=== PATIENT | male | born 1940 | race Caucasian/White ===

== ENCOUNTER 2019-12-25 09:54 | Emergency (ER) | payer MEDICARE, OTHER ==
[~2019-12-25] VITALS: Ht 175.3 cm; Wt 119.0 kg
--- NOTE | 2019-12-25 10:46 | NUR ---
pt presents to ED with c/o mild sob and subjective fevers for last several days, pt denies chest pain, denies cough. pt is a&o, resps even and unlabored, pt able to speak in full sentences without needing to take a breath. all monitors in place, pt is sinus tach rate 90-100s with rare PVC. call light in reach. pt seen and examined by FLORENTIN Byers, awaiting labs and dispo at this time.
[2019-12-25 11:03] LABS: MEAN CORPUSCULAR HEMOGLOBIN 32.3 pg (27.5-34.5); MEAN PLATELET VOLUME 7.6 fL (7.4-10.4); PLATELET COUNT 283 x10^3/uL (130-400); RED BLOOD COUNT 3.35 x10^6/uL (4.38-5.82); RED CELL DISTRIBUTION WIDTH 13.1 % (9.4-14.8)
[2019-12-25 11:11] LABS: ALBUMIN 3.1 g/dL (3.4-5.0); ANION GAP 7 mmol/L (5-15); CALCIUM 9.3 mg/dL (8.5-10.1); CHLORIDE 105 mmol/L (98-107); CREATININE 1.43 mg/dL (0.7-1.3)
[2019-12-25 11:18] LABS: MD YES
[2019-12-25 11:19] LABS: EOS#(MANUAL) 0.28 x10^3/uL (0.0-0.4); EOS% (MANUAL) 3 % (1-7); LYMPH#(MANUAL) 1.97 x10^3/uL (1-3.4); LYMPHS% (MANUAL) 21 % (22-44); MONOS#(MANUAL) 0.38 x10^3/uL (0.3-2.7); MONOS% (MANUAL) 4 % (2-9); SEG#(MANUAL) 6.77 x10^3/uL (1.8-6.8); SEGS% (MANUAL) 72 % (42-75)
[2019-12-25 11:20] LABS: <PLATELET ESTIMATE> ADEQUATE; <RBC MORPHOLOGY> NORMAL; LARGE PLATELETS 1+
[2019-12-25 11:35] VITALS: BP 122/65
--- NOTE | 2019-12-25 11:36 | NUR ---
all results back, chart up for recheck. Pt symptomology reviewed by FLORENTIN Byers, per MD Byers, pt is at low risk for PE, declines to order ddimer/CTA.
--- NOTE | 2019-12-25 12:07 | NUR ---
PT GIVEN DC INSTRUCTIONS WITH RETURN CRITERIA. PT IS A&O, RESPS EVEN AND UNLABORED, SPEAKING IN FULL SENTENCES WITHOUT DIFFICULTY. NADN. PT AMBULATORY TO DC DESK WITH STEADY GAIT. ALL QUESTIONS ANSWERED.
== END 2019-12-25 12:08 | disposition home or self-care (01) ==
LOC: ED 10:22
DX: D64.9 Anemia, unspecified (principal); R06.00 Dyspnea, unspecified; Z20.828 Contact with and (suspected) exposure to other viral communicable diseases; R00.0 Tachycardia, unspecified; I10 Essential (primary) hypertension; E11.9 Type 2 diabetes mellitus without complications; E78.00 Pure hypercholesterolemia, unspecified
CPT/HCPCS: 36415; 71045; 80048; 82040; 85025; 87635; 93005; 99285